=== PATIENT | female | born 1985 | race Caucasian/White ===

== ENCOUNTER 2022-10-04 11:51 | Emergency (ER) | payer OTHER ==
[~2022-10-04] VITALS: Ht 160 cm; Wt 86.4 kg
[2022-10-04] MEDS ORDERED: OLAN10TA74 PO (11:58)
[2022-10-04 12:23] VITALS: BP 121/92
[2022-10-04] MEDS ORDERED: LORazepam 1 MG TABLET PO ONE (13:45)
[2022-10-04] MEDS ORDERED: OLANZapine 5 MG TABLET PO ONE (13:45)
[2022-10-04] MEDS ORDERED: LORA-1000 PO (14:20)
== END 2022-10-04 14:42 | disposition home or self-care (01) ==
LOC: EMS 11:56
DX: F20.0 Paranoid schizophrenia (principal); G47.00 Insomnia, unspecified
CPT/HCPCS: 99284; Z7502; Z7610